=== PATIENT | male | born 1970 | race Caucasian/White ===

== ENCOUNTER 2023-10-28 10:00 | Emergency (ER) | payer OTHER, SELFPAY ==
[2023-10-28] VITALS (36 sets, daily range): BP systolic 120–153; BP diastolic 75–95; PULSE 80–97; RESP 16; TEMP 36; O2SAT 94–100; BMI 28.1
--- NOTE | 2023-10-28 10:16 | CRLHL7_ITS ---
For Patients: As a result of the Century Cures Act, medical imaging exams and procedure reports are released immediately into your electronic medical record. You may view this report before your referring provider. If you have questions, please contact your health care provider. INDICATION: Fall TECHNIQUE: CT head without contrast. COMPARISON: None available. FINDINGS: CSF spaces: Within normal limits for age. Brain parenchyma and extra-axial spaces: The graham-white differentiation is normal. No sign of mass effect, hemorrhage, or midline shift. No extra-axial fluid collection. Skull base and calvarium: Small air-fluid levels within bilateral maxillary sinuses. The visualized orbits are grossly unremarkable. No skull fractures. IMPRESSION: 1. No evidence of acute intracranial abnormality on this unenhanced CT. 2. Small air-fluid levels within the bilateral maxillary sinuses. Recommend correlation for signs and symptoms of sinusitis. Please note that all CT scans at this facility use dose modulation, iterative reconstruction, and/or weight-based dosing when appropriate to reduce radiation dose to as low as reasonably achievable. Dictated by To Lynn MD @ 10/28/2023 11:01:11 AM (Electronically Signed)
--- NOTE | 2023-10-28 10:22 | CRLHL7_ITS ---
For Patients: As a result of the Century Cures Act, medical imaging exams and procedure reports are released immediately into your electronic medical record. You may view this report before your referring provider. If you have questions, please contact your health care provider. INDICATION: Dizziness. TECHNIQUE: CTA neck with contrast bolus tracking, 3D angiographic rendering using maximum intensity projection (MIP) and images permanently archived. FINDINGS: There is no significant carotid artery stenosis or dissection. There is no significant vertebral artery stenosis or dissection. The soft tissues of the neck are within normal limits. The cervical spine is in normal alignment. Degenerative and postoperative changes are noted in the cervical spine. IMPRESSION: No significant carotid or vertebral artery stenosis or dissection. Please note that all CT scans at this facility use dose modulation, iterative reconstruction, and/or weight-based dosing when appropriate to reduce radiation dose to as low as reasonably achievable. Dictated by Prashanth Powell MD @ 10/28/2023 11:17:42 AM (Electronically Signed)
--- NOTE | 2023-10-28 10:22 | CRLHL7_ITS ---
For Patients: As a result of the Century Cures Act, medical imaging exams and procedure reports are released immediately into your electronic medical record. You may view this report before your referring provider. If you have questions, please contact your health care provider. INDICATION: Fall TECHNIQUE: CT cervical spine. (Reformatted from contrast enhanced CTA neck from the same day.) COMPARISON: None. FINDINGS: Vertebrae: Preserved cervical lordosis. There are no fractures or suspicious bony lesions. Discs and facet joints: Cervical interbody disc spacer at C5-6. There is associated degenerative process at this level and mild degenerative arthrosis of the subjacent levels. Moderate left greater than right facet arthropathy. No evidence of high-grade spinal canal stenosis. Multilevel degenerative neural femoral stenosis most notably moderate severe on the left at C3-C4, severe left C4-C5, moderate left C5-C6 and C6-C7. Extraspinal findings: Paraspinous soft tissues are unremarkable. IMPRESSION: 1. No sign of acute cervical spine fracture. 2. C5-C6 interbody disc spacer. Multilevel degenerative spondylosis. Multilevel degenerative neural foraminal stenosis, as above. Please note that all CT scans at this facility use dose modulation, iterative reconstruction, and/or weight-based dosing when appropriate to reduce radiation dose to as low as reasonably achievable. Dictated by To Lynn MD @ 10/28/2023 11:04:56 AM (Electronically Signed)
--- NOTE | 2023-10-28 10:22 | CRLHL7_ITS ---
For Patients: As a result of the Century Cures Act, medical imaging exams and procedure reports are released immediately into your electronic medical record. You may view this report before your referring provider. If you have questions, please contact your health care provider. INDICATION: Dizziness. TECHNIQUE: CTA head with contrast bolus tracking, 3D angiographic rendering using maximum intensity projection (MIP) and images permanently archived. FINDINGS: There is normal opacification of the intracranial vasculature. There is no large vessel occlusion. No aneurysm is identified. IMPRESSION: Unremarkable head CTA. Please note that all CT scans at this facility use dose modulation, iterative reconstruction, and/or weight-based dosing when appropriate to reduce radiation dose to as low as reasonably achievable. Dictated by Prashanth Powell MD @ 10/28/2023 11:16:55 AM (Electronically Signed)
--- NOTE | 2023-10-28 10:28 | ED_ITS ---
HPI - General Adult General Chief complaint: Chest Pain Stated complaint: Covid+, dizzy, chest tight Time Seen by Provider: 10/28/23 10:02 Source: patient Mode of arrival: ambulatory Limitations: no limitations History of Present Illness HPI narrative: 52-year-old male presenting today after syncopal episode. Patient states that he has had flu-like symptoms 2 weeks ago and took an at-home COVID test 8 days ago which was positive. He states that today he got up to use the bathroom around 9:00 a.m. and the next thing he knew he was lying on the bathroom floor and he had vomited. Unclear if he had vomited before a syncopal episode or after. He is complaining of headache, neck pain, dizziness. States that the room is ?wobbly. He also complains of central chest pain. Per his , patient was very emotional, called her crying when she was at work this morning. This is very unusual behavior for him. He she also states that for the last 2 months he has had a 20 lb unexplained weight loss, he tells her that he feels like he is going to . She also states that he often believes that his father spirit is around him. This last week he said that this bear was coming to take him and that it was is time to . Patient does have history of anxiety and depression that he takes medications for, unclear if he goes to therapy or not. He is not forthcoming with this information in the is unaware of whether not he goes to therapy as she does not ask him. He is also an insulin-dependent diabetic, per his he has been taking his medications as prescribed. Does state that he has been having on and off chest pain for about 2 months now, similar to the 1 he has today. A review systems is grossly positive for the things mentioned above also the feeling that his tongue is large, decreased appetite, increased fatigue. Medical history consists of insulin-dependent diabetes, depression, anxiety, hypertension, hyperlipidemia, obstructive sleep apnea, hypothyroidism. Past family history significant for coronary artery disease of both father and grandfather in their 50s. Related Data Home Medications Medication Instructions Recorded Confirmed acarbose 25 mg tablet 25 mg PO TID 10/28/23 10/28/23 amlodipine 10 mg tablet 10 mg PO DAILY 10/28/23 10/28/23 carvedilol 12.5 mg tablet 12.5 mg PO BID 10/28/23 10/28/23 dulaglutide 3 mg/0.5 mL 3 mg subcut QWEEK 10/28/23 10/28/23 [facility] flash glucose sensor (FreeStyle 10/28/23 10/28/23 Lynsey 14 Day Sensor kit) glipizide 10 mg tablet 10 mg PO BID 10/28/23 10/28/23 hydrochlorothiazide 25 mg tablet 25 mg PO DAILY 10/28/23 10/28/23 insulin glargine U-300 conc 300 125 unit subcut QPM 10/28/23 10/28/23 unit/mL (1.5 mL) subcutaneous pen (BrayanPicfairar U-300 Insulin) lamotrigine 150 mg tablet 150 mg PO BID 10/28/23 10/28/23 levothyroxine 200 mcg tablet 200 mcg PO DAILY 10/28/23 10/28/23 lisinopril 40 mg tablet 40 mg PO DAILY 10/28/23 10/28/23 mercaptopurine 50 mg tablet 150 mg PO QDAY 10/28/23 10/28/23 metformin 500 mg tablet 1,000 mg PO BID 10/28/23 10/28/23 nortriptyline 25 mg capsule 25 mg PO QPM 10/28/23 10/28/23 pantoprazole 20 mg tablet,delayed 20 mg PO DAILY 10/28/23 10/28/23 release pen needle, diabetic 32 gauge x 10/28/23 10/28/23 5/32 (BD Massiel 2nd Gen Pen Needle) pravastatin 10 mg tablet 10 mg PO QPM 10/28/23 10/28/23 Previous Rx's Medication Instructions Recorded meclizine 25 mg tablet 25 mg PO BID PRN #10 tabs 10/28/23 Allergies Allergy/AdvReac Type Severity Reaction Status Date / Time canagliflozin [From Invokana] Allergy Unknown Dizziness Verified 10/28/23 11:09 Review of Systems Status of ROS: Reports: 10 or more systems reviewed and unremarkable except as noted in History and below [facility] PFS Social History Smoking Status: Never smoker How often do you have a drink containing alcohol: monthly or less AUDIT-C Alcohol total score: 1 Non-prescribed substance use: denies use Exam Narrative: Exam Narrative: Patient is hemodynamically stable Well-nourished well-developed patient in no acute distress. Alert and oriented x3. Answers questions only after probing. His initial response to several questions such as when did you pass out and what medications are you on is I do not know. Flat affect. Thoughts are goal oriented and rational. Patient speaks in full sentences without needing to catch his breath. Speech is not slurred or pressured. GCS is 15. Normal facial symmetry. HEENT: Normocephalic atraumatic. Pupils are equally round reactive to light. Extraocular muscles are intact. Conjunctivae are moist without any icterus noted. Moist mucous membranes. Posterior pharynx is normal. Neck is soft without any lymphadenopathy or thyromegaly. No masses are appreciated. He has no tenderness to palpation of the cervical spine. He has diffuse mild tenderness across the base of the posterior neck a.m. at the top of the shoulders. He has full range of motion at the neck with flexion, extension, side way bending and rotation. Cardiovascular: Heart is regular rate and rhythm S1 and S2 are present without any murmurs. He has mild chest discomfort reproducible with palpation. Lungs: Clear to auscultation bilaterally no wheezes rhonchi or rales are appreciated. Patient takes deep breaths without any discomfort. Abdomen: Soft and nontender nondistended with normal bowel sounds. No guarding or rebound. No masses or organomegaly appreciated. Extremities: Bilateral lower extremities are without edema. Normal DP and PT pulses. Skin: Well perfused without any obvious rashes. Strength is 5/5 of the upper and lower extremities, both distal and proximal muscle groups. Hand duct layer helper is normal and symmetric. Reflexes are 2+ and symmetric at the knees. Cranial nerves 3-12 are normal. There is no nystagmus either horizontally or vertically. Const: Vital Signs, click to edit/add: Vital Signs - 24 hr 10/28/23 10:04 10/28/23 10:22 10/28/23 10:22 Temperature 96.8 F L Pulse Rate Pulse Rate [Pulse Oximeter] 87 Respiratory Rate 16 Blood Pressure 121/80 Blood Pressure [Ri ght Upper Arm] 130/77 Pulse Oximetry 96 98 Oxygen Delivery Me thod Room Air 10/28/23 10:47 10/28/23 10:51 10/28/23 10:52 Temperature Pulse Rate 84 88 90 Pulse Rate [Pulse Oximeter] Respiratory Rate Blood Pressure 126/79 132/90 H Blood Pressure [Ri ght Upper Arm] Pulse Oximetry 97 97 97 Oxygen Delivery Me thod 10/28/23 11:00 10/28/23 11:01 Temperature Pulse Rate 87 86 Pulse Rate [Pulse Oximeter] Respiratory Rate Blood Pressure 128/78 Blood Pressure [Ri ght Upper Arm] Pulse Oximetry 97 94 Oxygen Delivery Ar thod Course Course ED Course: Given his multitude of symptoms, the differential diagnoses is quite long. Does include coronary artery disease with acute coronary syndrome, stroke, vertigo secondary to labyrinthitis or BPPV, dehydration, thyroid dysfunction, PE, pneumonia, , pneumothorax, intracranial hemorrhage, continued COVID symptoms, influenza, depression. EKG, read by me, shows normal sinus rhythm with a pulse of 85. Immediately after physical examination, patient is sent for imaging including head CT, cervical spine CT, head and neck CTA. Head CT and neck CT are normal. CTA head and neck are normal. Venous blood gas and lactate were unremarkable. Normal CBC. Negative for mono. Initial troponin is 0. Normal D-dimer. Chest x-ray, read by me, does not show any acute pathology. Normal CK. Chemistries are normal. LFTs are elevated. Glucose is 158. TSH is normal. UA is unremarkable. Repeat EKG and troponin are unchanged. Discussed with the patient and his that I feel that a DEC assessment would be important given his history of depression anxiety and comments about dying. Patient states that this is not necessary. He states that he is not suicidal or homicidal, and does not feel like his symptoms are related to his depression. Upon further conversation, he tells me that he is short of breath with physical activity, is dizzy on and off, has been fatigued-all these things have been going on for about 2 months or more. Patient is treated with a L of normal saline and meclizine. Does feel better. Vital Signs Vital signs: Initial Vital Signs Temperature 96.8 F L 10/28/23 10:04 Temperature Source Temporal Artery Scan 10/28/23 10:04 Pulse Rate 87 10/28/23 10:04 Pulse Rhythm Regular 10/28/23 10:04 Respiratory Rate 16 10/28/23 10:04 Blood Pressure 130/77 10/28/23 10:04 Blood Pressure Mean 94 10/28/23 10:04 Blood Pressure Position Supine 10/28/23 10:04 Pulse Oximetry 96 10/28/23 10:04 Oxygen Delivery Method Room Air 10/28/23 10:04 Vital Signs Temperature 96.8 F L 10/28/23 10:04 Pulse Rate 87 10/28/23 10:04 Respiratory Rate 16 10/28/23 10:04 Blood Pressure 130/77 10/28/23 10:04 Pulse Oximetry 96 10/28/23 10:04 Oxygen Delivery Method Room Air 10/28/23 10:04 Temperature 96.8 F L 10/28/23 10:04 Pulse Rate 86 10/28/23 11:01 Respiratory Rate 16 10/28/23 10:04 Blood Pressure 128/78 10/28/23 11:01 Pulse Oximetry 94 10/28/23 11:01 Oxygen Delivery Method Room Air 10/28/23 10:04 Medications Administered Medications: Discontinued Medications Generic Name Dose Route Start Last Admin Trade Name Davonq PRN Reason Stop Dose Admin Sodium Chloride 1,000 mls @ 1,000 mls/hr 10/28/23 11:45 10/28/23 11:55 0.9 % Sodium Chloride 1000 Ml IV 10/28/23 12:44 1,000 mls/hr .Q1H BOBO Administration Meclizine HCl 25 mg 10/28/23 11:38 10/28/23 11:55 Meclizine Hcl 25 Mg Tablet PO 10/28/23 11:39 25 mg ONCE ONE Administration Medical Decision Making MDM Narrative Medical decision making narrative: 52-year-old male with syncopal episode and dizziness, 2 months of weight loss, chest pain, shortness of breath, fatigue. No acute findings today. I do recommend he follow up with primary care provider which he states he has not seen in many months. Also recommend a stress test at this time. Lab Data Lab results reviewed: Yes I reviewed the patient's lab results Labs: Lab Results 10/28/23 10/28/23 10/28/23 Range/Units 10:18 10:36 10:50 WBC 4.81 (4.50-11.00) K/uL RBC 4.33 (4.30-5.90) m/uL Hgb 13.7 (13.5-17.5) gm/dL Hct 38.9 (37.0-53.0) % MCV 90 (80-100) fL MCH 32 (26-34) pg MCHC 35 (32-36) gm/dL RDW Coeff of Toni 12.9 (11.5-15.5) % Plt Count 253 (140-440) K/uL Neut % (Auto) 55.9 (42.0-72.0) % Lymph % (Auto) 34.1 (20-44) % [place] % (Auto) 7.5 (0.0-11.0) % Eos % (Auto) 1.7 (0.0-7.0) % Baso % (Auto) 0.4 (0.0-3.0) % Neut # (Auto) 2.69 (1.7-7.0) K/uL Lymph # (Auto) 1.64 (0.90-2.90) K/uL [place] # (Auto) 0.40 (0.00-0.90) K/UL Eos # (Auto) 0.08 (0.00-0.50) K/uL Baso # (Auto) 0.02 (0.00-0.30) K/uL Abs Immat Gran (auto) 0.02 (0.00-0.30) K/uL Imm/Tot Granulo (auto) 0.4 % D-Dimer Quant (PE/DVT) < 0.27 (0.00-0.50) ug/ml VBG pH 7.43 (7.32-7.43) VBG pCO2 44 (40-50) mmHG VBG pO2 48.1 H (25-47) mmHG VBG HCO3 29 H (21-28) mmol/L Sodium 138 (135-149) mmol/L Potassium 3.7 (3.6-5.1) mmol/L Chloride 101 (96-114) mmol/L Carbon Dioxide 25 (20-32) mmol/L Anion Gap 12 (7-15) mEq/L BUN 15 (7-30) mg/dL Creatinine 0.6 (0.5-1.5) mg/dL Estimated Creat Clear 174.09 Estimated GFR 117 ml/min Glucose 158 H (60-115) mg/dL Lactate 1.4 (0.5-1.9) mmol/L Calcium 10.0 (8.4-10.6) mg/dL Total Bilirubin 0.9 (0.1-1.5) mg/dL Direct Bilirubin 0.4 (0.0-0.5) mg/dL AST 152 H (12-35) U/L ALT 193 H (4-50) U/L Alkaline Phosphatase 65 (40-150) U/L Total Creatine Kinase 72 (54-186) U/L Troponin I < 0.01 L (0.01-0.04) ng/mL C-Reactive Protein 0.7 (0.5-1.0) mg/dL Total Protein 7.3 (6.0-8.3) g/dL Albumin 4.6 (3.3-5.0) g/dL TSH 0.876 (0.270-4.20) uIU/mL Urine Color (Yellow) Urine Appearance (Clear) Urine pH (5.0-8.5) Ur Specific [place] (1.000-1.030) Urine Protein (Negative) Urine Glucose (UA) (Negative) Urine Ketones (Negative) Urine Blood (Negative) Urine Nitrite (Negative) Urine Bilirubin (Negative) Urine Urobilinogen (0.2-1.0) Ur Leukocyte Esterase (Negative) Urine RBC (0-2) Urine WBC (0-5) Ur Squamous Epith Cells (None-Few) Urine Bacteria (None) Ethyl Alcohol < 0.01 L (0.01-0.03) % SARS-CoV-2 (PCR) POSITIVE SARS-CoV-2 A (Negative) Monoscreen Negative (Negative) Influenza Type A (PCR) Negative PCR FLU A (Negative) Influenza Type B (PCR) Negative PCR FLU B (Negative) RSV (PCR) Negative PCR RSV (Negative) Lab Acknowledgement POC Troponin I 0.00 L (0.01-0.04) ng/ml 10/28/23 10/28/23 10/28/23 Range/Units 11:36 12:11 13:10 WBC (4.50-11.00) K/uL RBC (4.30-5.90) m/uL Hgb (13.5-17.5) gm/dL Hct (37.0-53.0) % MCV (80-100) fL MCH (26-34) pg MCHC (32-36) gm/dL RDW Coeff of Toni (11.5-15.5) % Plt Count (140-440) K/uL Neut % (Auto) (42.0-72.0) % Lymph % (Auto) (20-44) % [place] % (Auto) (0.0-11.0) % Eos % (Auto) (0.0-7.0) % Baso % (Auto) (0.0-3.0) % Neut # (Auto) (1.7-7.0) K/uL Lymph # (Auto) (0.90-2.90) K/uL [place] # (Auto) (0.00-0.90) K/UL Eos # (Auto) (0.00-0.50) K/uL Baso # (Auto) (0.00-0.30) K/uL Abs Immat Gran (auto) (0.00-0.30) K/uL Imm/Tot Granulo (auto) % D-Dimer Quant (PE/DVT) (0.00-0.50) ug/ml VBG pH (7.32-7.43) VBG pCO2 (40-50) mmHG VBG pO2 (25-47) mmHG VBG HCO3 (21-28) mmol/L Sodium (135-149) mmol/L Potassium (3.6-5.1) mmol/L Chloride (96-114) mmol/L Carbon Dioxide (20-32) mmol/L Anion Gap (7-15) mEq/L BUN (7-30) mg/dL Creatinine (0.5-1.5) mg/dL Estimated Creat Clear Estimated GFR ml/min Glucose (60-115) mg/dL Lactate (0.5-1.9) mmol/L Calcium (8.4-10.6) mg/dL Total Bilirubin (0.1-1.5) mg/dL Direct Bilirubin (0.0-0.5) mg/dL AST (12-35) U/L ALT (4-50) U/L Alkaline Phosphatase (40-150) U/L Total Creatine Kinase (54-186) U/L Troponin I (0.01-0.04) ng/mL C-Reactive Protein (0.5-1.0) mg/dL Total Protein (6.0-8.3) g/dL Albumin (3.3-5.0) g/dL TSH (0.270-4.20) uIU/mL Urine Color Yellow (Yellow) Urine Appearance Clear (Clear) Urine pH 7.0 (5.0-8.5) Ur Specific [place] 1.010 (1.000-1.030) Urine Protein Negative (Negative) Urine Glucose (UA) Negative (Negative) Urine Ketones Negative (Negative) Urine Blood Negative (Negative) Urine Nitrite Negative (Negative) Urine Bilirubin Negative (Negative) Urine Urobilinogen 0.2 (0.2-1.0) Ur Leukocyte Esterase Negative (Negative) Urine RBC 0-2 (0-2) Urine WBC 0-2 (0-5) Ur Squamous Epith Cells Few (None-Few) Urine Bacteria None (None) Ethyl Alcohol (0.01-0.03) % SARS-CoV-2 (PCR) (Negative) Monoscreen (Negative) Influenza Type A (PCR) (Negative) Influenza Type B (PCR) (Negative) RSV (PCR) (Negative) Lab Acknowledgement Test Added POC Troponin I 0.00 L (0.01-0.04) ng/ml Imaging Data CT scan - head: Attestation: I have reviewed the pertinent imaging results. Radiologist's impression: CT head without contrast. COMPARISON: None available. FINDINGS: CSF spaces: Within normal limits for age. Brain parenchyma and extra-axial spaces: The graham-white differentiation is normal. No sign of mass effect, hemorrhage, or midline shift. No extra-axial fluid collection. Skull base and calvarium: Small air-fluid levels within bilateral maxillary sinuses. The visualized orbits are grossly unremarkable. No skull fractures. IMPRESSION: 1. No evidence of acute intracranial abnormality on this unenhanced CT. 2. Small air-fluid levels within the bilateral maxillary sinuses. Recommend correlation for signs and symptoms of sinusitis. CT- Other: Attestation: I have reviewed the pertinent imaging results. Radiologist's impression: CT cervical spine. (Reformatted from contrast enhanced CTA neck from the same day.) COMPARISON: None. FINDINGS: Vertebrae: Preserved cervical lordosis. There are no fractures or suspicious bony lesions. Discs and facet joints: Cervical interbody disc spacer at C5-6. There is associated degenerative process at this level and mild degenerative arthrosis of the subjacent levels. Moderate left greater than right facet arthropathy. No evidence of high-grade spinal canal stenosis. Multilevel degenerative neural femoral stenosis most notably moderate severe on the left at C3-C4, severe left C4-C5, moderate left C5-C6 and C6-C7. Extraspinal findings: Paraspinous soft tissues are unremarkable. IMPRESSION: 1. No sign of acute cervical spine fracture. 2. C5-C6 interbody disc spacer. Multilevel degenerative spondylosis. Multilevel degenerative neural foraminal stenosis, as above. Head CTA: Attestation: I have reviewed the pertinent imaging results. Radiologist's impression: CTA head with contrast bolus tracking, 3D angiographic rendering using maximum intensity projection (MIP) and images permanently archived. FINDINGS: There is normal opacification of the intracranial vasculature. There is no large vessel occlusion. No aneurysm is identified. IMPRESSION: Unremarkable head CTA. Neck CTA: Attestation: I have reviewed the pertinent imaging results. Radiologist's impression: CTA neck with contrast bolus tracking, 3D angiographic rendering using maximum intensity projection (MIP) and images permanently archived. FINDINGS: There is no significant carotid artery stenosis or dissection. There is no significant vertebral artery stenosis or dissection. The soft tissues of the neck are within normal limits. The cervical spine is in normal alignment. Degenerative and postoperative changes are noted in the cervical spine. IMPRESSION: No significant carotid or vertebral artery stenosis or dissection. Chest x-ray: Attestation: I have reviewed the pertinent imaging results. Radiologist's impression: PA and lateral views of the chest were acquired FINDINGS: TUBES AND LINES: None. HEART AND MEDIASTINUM: The heart size is normal. The mediastinal contour appears normal for patient age. LUNGS AND PLEURAL SPACES: The lungs appear normal.The pleural spaces are unremarkable. OSSEOUS STRUCTURES: Age-appropriate appearance. No acute focal finding. IMPRESSION: No evidence of active pulmonary disease. ECG Data Attestation: I personally reviewed and interpreted this ECG as follows: Discharge Plan Discharge Clinical Impression: Dizziness, Atypical chest pain, Episode of syncope, Fatigue, Shortness of breath Patient Disposition: Home, Self-Care Condition: Stable Additional Instructions: This time, your workup in the ER was unremarkable. No life-threatening causes of your symptoms were identified. I do recommend that you follow-up with your primary care provider to discuss her ongoing symptoms. It is recommended that you have a stress test done if you have not had one done in the last several years. The meantime, new will be sent home with medications to help decrease the amount of dizziness you are having. Take them as needed. Remain well hydrated and rest as much as you need to. Symptoms from COVID 19 infection can last several weeks. Prescriptions: New meclizine 25 mg tablet 25 mg PO BID PRNQty: 10 0RF No Action amlodipine 10 mg tablet 10 mg PO DAILY acarbose 25 mg tablet 25 mg PO TID lamotrigine 150 mg tablet 150 mg PO BID mercaptopurine 50 mg tablet 150 mg PO QDAY levothyroxine 200 mcg tablet 200 mcg PO DAILY lisinopril 40 mg tablet 40 mg PO DAILY (DME) pen needle, diabetic [BD Massiel 2nd Gen Pen Needle] 32 gauge x needl e MISCELLANEOUS Patient Comments: [NO ORIGINAL SIG] metformin 500 mg tablet 1,000 mg PO BID carvedilol 12.5 mg tablet 12.5 mg PO BID pantoprazole 20 mg tablet,delayed release (DR/EC) 20 mg PO DAILY nortriptyline 25 mg capsule 25 mg PO QPM pravastatin 10 mg tablet 10 mg PO QPM Salo Blair U-300 Insulin 300 unit/mL (1.5 mL) insulin pen 125 unit subcut QPM glipizide 10 mg tablet 10 mg PO BID hydrochlorothiazide 25 mg tablet 25 mg PO DAILY (DME) FreeStyle Lynsey 14 Day Sensor Kit 1 ea MISCELLANEOUS Q2W Trulicity 3 mg/0.5 mL pen injector 3 mg subcut QWEEK Follow Up/Referrals: Provider,Not a Local [Primary Care Provider] - Stand Alone Forms: [facility] Info Instructions
--- NOTE | 2023-10-28 10:28 | ED.NURSE ---
1010-EKG done. 1015- notified, declines TTA. Order for STAT head CT w/o. Imaging notified. 1018-#18G IV established in L AC. Bloodwork drawn. at bedside. 1024-Pt to imaging.
[2023-10-28 10:31] LABS: HCO3 VBG 29 mmol/L (21-28); Lactate* 1.4 mmol/L (0.5-1.9); PCO2 VBG 44 mmHG (40-50); PO2 VBG 48.1 mmHG (25-47); pH VBG 7.43 (7.32-7.43)
[2023-10-28 10:35] LABS: Basophils Absolute Auto 0.02 K/uL (0.00-0.30); Basophils Percent Auto 0.4 % (0.0-3.0); Eosinophils Absolute Auto 0.08 K/uL (0.00-0.50); Eosinophils Percent Auto 1.7 % (0.0-7.0); Hematocrit 38.9 % (37.0-53.0); Hemoglobin* 13.7 gm/dL (13.5-17.5); Immature Granulocytes Abs Auto 0.02 K/uL (0.00-0.30); Immature Granulocytes Pct Auto 0.4 %; Lymphocytes Absolute Auto 1.64 K/uL (0.90-2.90); Lymphocytes Percent Auto 34.1 % (20-44); Mean Corpuscular HGB Conc 35 gm/dL (32-36); Mean Corpuscular Hemoglobin 32 pg (26-34); Mean Corpuscular Volume 90 fL (80-100); Monocytes Percent Auto 7.5 % (0.0-11.0); Neutrophils Absolute Auto 2.69 K/uL (1.7-7.0); Neutrophils Percent Auto 55.9 % (42.0-72.0); Platelet Count* 253 K/uL (140-440); RDW Coefficient of Variation % 12.9 % (11.5-15.5); Red Blood Count 4.33 m/uL (4.30-5.90); White Blood Count* 4.81 K/uL (4.50-11.00)
[2023-10-28 10:40] LABS: Slide Review Reflex No
[2023-10-28 10:45] LABS: Mono Screen* Negative (Negative)
[2023-10-28 10:58] LABS: D Dimer Quantitative* < 0.27 ug/ml (0.00-0.50)
[2023-10-28 11:00] LABS: Albumin* 4.6 g/dL (3.3-5.0); Chloride* 101 mmol/L (96-114); Potassium* 3.7 mmol/L (3.6-5.1); Sodium* 138 mmol/L (135-149)
[2023-10-28 11:02] LABS: Creatine Kinase* 72 U/L (54-186); Creatinine* 0.6 mg/dL (0.5-1.5); Est. Creatinine Clearance* 174.09; Estimated Glomerular Filt Rate 117 ml/min
--- NOTE | 2023-10-28 11:02 | CRLHL7_ITS ---
For Patients: As a result of the Cures Act, medical imaging exams and procedure reports are released immediately into your electronic medical record. You may view this report before your referring provider. If you have questions, please contact your health care provider. INDICATION: Dyspnea COMPARISON: None TECHNIQUE: PA and lateral views of the chest were acquired FINDINGS: TUBES AND LINES: None. HEART AND MEDIASTINUM: The heart size is normal. The mediastinal contour appears normal for patient age. LUNGS AND PLEURAL SPACES: The lungs appear normal.The pleural spaces are unremarkable. OSSEOUS STRUCTURES: Age-appropriate appearance. No acute focal finding. IMPRESSION: No evidence of active pulmonary disease. Dictated by Constantin Sherman MD @ 10/28/2023 11:23:28 AM (Electronically Signed)
[2023-10-28 11:03] LABS: Alanine Aminotransferase* 193 U/L (4-50); Alkaline Phosphatase* 65 U/L (40-150); Anion Gap 12 mEq/L (7-15); Aspartate Amino Transferase* 152 U/L (12-35); Bilirubin Direct* 0.4 mg/dL (0.0-0.5); Bilirubin Total* 0.9 mg/dL (0.1-1.5); Blood Urea Nitrogen* 15 mg/dL (7-30); Carbon Dioxide* 25 mmol/L (20-32); Glucose* 158 mg/dL (60-115); Total Protein* 7.3 g/dL (6.0-8.3)
[2023-10-28 11:06] LABS: C Reactive Protein* 0.7 mg/dL (0.5-1.0)
[2023-10-28 11:16] LABS: Ethanol* < 0.01 % (0.01-0.03); Troponin I* < 0.01 ng/mL (0.01-0.04)
[2023-10-28 11:52] LABS: PCR FLU A Negative PCR FLU A (Negative); PCR FLU B Negative PCR FLU B (Negative); PCR RSV Negative PCR RSV (Negative); SARS PCR* POSITIVE SARS-CoV-2 (Negative)
[2023-10-28] MEDS: 0.9 % SODIUM CHLORIDE 1000 ml 1,000 ML IV (11:55)
[2023-10-28] MEDS: MECLIZINE HCL 25 MG TABLET PO (11:55)
[2023-10-28 12:29] LABS: Thyroid Stimulating Hormone* 0.876 uIU/mL (0.270-4.20)
[2023-10-28 13:17] LABS: Appearance Urine Clear (Clear); Bilirubin Urine Negative (Negative); Blood Urine Negative (Negative); Color Urine Yellow (Yellow); Glucose Urine Negative (Negative); Ketones Urine Negative (Negative); Leukocyte Esterase Urine Negative (Negative); Nitrite Urine Negative (Negative); Protein Urine Negative (Negative); Urobilinogen Urine 0.2 (0.2-1.0)
[2023-10-28 13:42] LABS: RBC Urine 0-2 (0-2); Squamous Epithelial Cell Urine Few (None-Few); WBC Urine 0-2 (0-5)
== END 2023-10-28 14:00 | disposition home or self-care (01) ==
PROVIDERS: Emergency Provider Family Medicine; PCP Internal Medicine
DX: R55 Syncope and collapse (principal); R07.9 Chest pain, unspecified; R06.02 Shortness of breath
CPT/HCPCS: 36415; 70450; 70496; 70498; 71046; 72125; 80048; 80076; 81001; 82077; 82550; 82803; 83605; 84443; 84484; 85025; 85379; 86140; 86308; 87086; 87631; 93005; 94761; 99284; 99285; A9270; J7030; Q9967